=== PATIENT | female | born 1980 | race Caucasian/White ===

== ENCOUNTER 2018-09-17 13:02 | Emergency (ER) | payer OTHER ==
[2018-09-17 13:46] LABS: HEMATOCRIT 17 % (35-47); MEAN CORPUSCULAR HEMOGLOBIN 31.6 pg (27.0-32.0); MEAN CORPUSCULAR HGB CONC 33.9 gm/dl (32.0-36.0); MEAN CORPUSCULAR VOLUME 93 fL (81-99)
[2018-09-17] MEDS: ALBUMIN HUMAN 12.5 GM IV ONE (13:46)
[2018-09-17] MEDS ORDERED: ALBUMIN HUMAN 100 ML IV ONE (13:53)
[2018-09-17 13:54] LABS: HEMOGLOBIN 5.8 gm/dl (12.0-15.5)
[2018-09-17 13:58] LABS: ALBUMIN 1.4 gm/dl (3.4-5.0); BILIRUBIN,TOTAL 13.6 mg/dl (0.2-1.0); CARBON DIOXIDE 21.6 mEq/L (21-32); CREATININE 2.28 mg/dl (0.60-1.00); TOTAL PROTEIN 5.9 gm/dl (6.4-8.2)
[2018-09-17 14:01] LABS: POTASSIUM 2.9 mMol/L (3.5-5.1)
[2018-09-17 14:06] LABS: BAND NEUTROPHILS % (MANUAL) 4 %; BASOPHILS % (MANUAL) 0 % (0-3); EOSINOPHILS % (MANUAL) 1 % (0-9); HYPOCHROMASIA PRESENT; LYMPHOCYTES % (MANUAL) 7 % (10-50); METAMYELOCYTES%(MANUAL) 1; MONOCYTES % (MANUAL) 8 % (0-12); NEUTROPHILS % (MANUAL) 79 % (37-80)
[2018-09-17 14:07] LABS: ANISOCYTOSIS SLIGHT; POIKILOCYTOSIS MARKED; TARGET CELLS PRESENT; TEAR DROP CELLS PRESENT
[2018-09-17 14:08] LABS: BURR CELLS PRESENT
[2018-09-17 14:13] LABS: INR 1.48 (0.86-1.12)
[2018-09-17] MEDS: ONDANSETRON HCL 4 MG/2 ML SOL IV ONE (14:18)
[2018-09-17] MEDS ORDERED: ONDANSETRON HCL 4 MG/2 ML SOL ONE (14:19)
[2018-09-17] MEDS: POTASSIUM CHLORIDE 10 MEQ TER PO ONE (14:19)
[2018-09-17] MEDS ORDERED: POTASSIUM CHLORIDE 10 MEQ TER ONE (14:20)
[2018-09-17] MEDS: SODIUM CHLORIDE 0.9% FLUSH 10 ML SOL IV PRN (14:29)
[2018-09-17 14:34] VITALS: O2SAT 100
[2018-09-17 14:35] VITALS: RESP 20
[2018-09-17 14:36] VITALS: BP 124/62; PULSE 115; TEMP 99.6
[2018-09-17] MEDS ORDERED: PIPERACILLIN/TAZOBACT 3.375 GM PDS IV ONE (14:39)
[2018-09-17] MEDS: PIPERACILLIN/TAZOBACT 3.375 GM 3 GM in SODIUM CHLORIDE 0.9% 100 ML 100 ML IV ONE (14:41)
[2018-09-17 15:07] LABS: ABO A; RH TYPE Positive
[2018-09-17 18:36] LABS: ANTIBODY SCREEN Positive
== END 2018-09-17 14:54 | disposition short-term general hospital (02) | DRG 443 ==
LOC: ED 13:02
DX: K76.7 Hepatorenal syndrome (principal); D64.9 Anemia, unspecified; D72.829 Elevated white blood cell count, unspecified; F10.10 Alcohol abuse, uncomplicated; K75.9 Inflammatory liver disease, unspecified
CPT/HCPCS: 36415; 80053; 82140; 85007; 85027; 85610; 86850; 86900; 86901; 96365; 96374; 99070; 99291; J2405; J2543; P9047; A9270-GY